=== PATIENT | male | born 1960 | race Caucasian/White ===

== ENCOUNTER 2022-03-13 10:17 | Emergency (ER) | payer MEDICAID ==
[~2022-03-13] VITALS: Ht 172.7 cm; Wt 81.7 kg
[2022-03-13] MEDS ORDERED: SYMBICORT 16010.2 GM INH (11:08)
[2022-03-13] MEDS ORDERED: VENTOLIN HFA18 GM INH (11:09)
[2022-03-13] MEDS ORDERED: AMOX TR-K CLV1 EAC1 PO (14:41)
== END 2022-03-13 14:52 | disposition home or self-care (01) ==
LOC: ED 10:17
DX: S01.85XA Open bite of other part of head, initial encounter (principal); S01.551A Open bite of lip, initial encounter; W55.01XA Bitten by cat, initial encounter; L03.221 Cellulitis of neck; J45.909 Unspecified asthma, uncomplicated; Z88.1 Allergy status to other antibiotic agents; Z79.899 Other long term (current) drug therapy
CPT/HCPCS: 36415; 71045; 80053; 83605; 85025; 87502; 96374; 96375; 99283-25; A9270; C9803; J0295; J2405; J7030; U0003